=== PATIENT | female | born 1970 | race Hispanic/Latino ===

== ENCOUNTER 2021-11-14 23:00 | Emergency (ER) | payer BC ==
[2021-11-15] MEDS ORDERED: Morphine 4 MG/ML VIAL ONE (01:29)
== END 2021-11-15 02:27 | disposition home or self-care (01) ==
LOC: CSHERS 23:00
DX: S43.402A Unspecified sprain of left shoulder joint, initial encounter (principal); M25.511 Pain in right shoulder; W19.XXXA Unspecified fall, initial encounter
CPT/HCPCS: 71045; 96372; J2270